=== PATIENT | male | born 1990 | race Caucasian/White ===

== ENCOUNTER 2018-10-05 14:18 | Emergency (ER) | payer BC, SELFPAY ==
[~2018-10-05] VITALS: Ht 185.4 cm; Wt 81.8 kg
[2018-10-05 14:24] VITALS: BP 169/93
[2018-10-05] MEDS ORDERED: ibuprofen tablet 400 MG TABLET PO ONE (14:40)
[2018-10-05] MEDS ORDERED: LIDOcaine 1% 30ml preserv. free vial IJ ONE (14:40)
[2018-10-05] MEDS ORDERED: HYDR-3965 PO (15:50)
[2018-10-05] MEDS ORDERED: CEPH500C5 PO (15:50)
== END 2018-10-05 16:01 | disposition home or self-care (01) ==
LOC: ER 14:19
DX: S61.200A Unspecified open wound of right index finger without damage to nail, initial encounter (principal); F17.200 Nicotine dependence, unspecified, uncomplicated; W23.0XXA Caught, crushed, jammed, or pinched between moving objects, initial encounter; Y93.89 Activity, other specified; Y92.89 Other specified places as the place of occurrence of the external cause; Y99.9 Unspecified external cause status
CPT/HCPCS: 29130; 73140; 99283; J3490; 64450; 99284